=== PATIENT | female | born 1950 | race Caucasian/White ===

== ENCOUNTER 2019-01-25 10:18 | Emergency (ER) | payer MEDICARE, OTHER ==
[~2019-01-25] VITALS: Ht 170.2 cm; Wt 89.4 kg
[2019-01-25 10:24] VITALS: Ht 170.2 cm; Wt 89.4 kg
[2019-01-25 11:48] VITALS: BP 181/102
== END 2019-01-25 11:58 | disposition home or self-care (01) ==
LOC: ED 10:18
DX: T16.1XXA Foreign body in right ear, initial encounter (principal); Z88.0 Allergy status to penicillin; Z88.6 Allergy status to analgesic agent; X58.XXXA Exposure to other specified factors, initial encounter; Y93.89 Activity, other specified; Y92.89 Other specified places as the place of occurrence of the external cause; Y99.8 Other external cause status
CPT/HCPCS: J2001